=== PATIENT | female | born 2000 | race Caucasian/White ===

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

== ENCOUNTER → 2020-03-06 08:36 | Outpatient (CLI) | payer OTHER, MEDICAID, SELFPAY ==
[2018-05-18 06:55] VITALS: BMI 22.5
[2020-03-06 11:10] LABS: Glucose Challenge Gest 1H 50g 109 mg/dL (70-140); Hematocrit 33.2 % (37-47); Hemoglobin 10.6 g/dL (12.0-15.0); Mean Corp Hgb Conc 31.9 g/dL (32-36); Mean Corpuscular Hgb 30.4 pg (27.0-32.0); Mean Corpuscular Volume 95.1 fL (81-99); Mean Platelet Vol. 10.6 fl (6.2-12.0); Platelet Count 276 K/mm3 (150-450); RBC Distribution Width CV 13.5 % (11.6-14.6); RBC Distribution Width SD 46.6 fl (35.1-43.9); Red Blood Count 3.49 M/mm3 (4.2-5.4)
== END ==
PROVIDERS: PCP Family Medicine; Visit Provider Student in an Organized Health Care Education/Training Program
DX: Z34.83 Encounter for supervision of other normal pregnancy, third trimester (principal)
CPT/HCPCS: 36415; 82950; 85027

== ENCOUNTER → 2020-05-02 | Outpatient (CLI) | payer OTHER, MEDICAID, SELFPAY ==
[2018-05-18 06:55] VITALS: BMI 22.5
== END | disposition home or self-care (01) ==
LOC: LABSPEC 11:21
PROVIDERS: PCP Family Medicine; Visit Provider Student in an Organized Health Care Education/Training Program
DX: Z36.85 Encounter for antenatal screening for Streptococcus B (principal)
CPT/HCPCS: 87081

== ENCOUNTER 2020-05-19 04:20 | Inpatient (IN) | payer OTHER, MEDICAID, SELFPAY ==
[2018-05-18 06:55] VITALS: BMI 22.5
[2020-05-19] VITALS (39 sets, daily range): BP systolic 117–154; BP diastolic 57–90; PULSE 52–127; RESP 16–18; TEMP 36.6–37.4; O2SAT 81–100; BMI 30.7
[2020-05-19] MEDS: Lactated Ringers 500 ML 999 ML IV (04:40)
[2020-05-19 04:48] LABS: Absolute Lymphocyte Count 1.36 X10^3/uL (0.83-4.51); Absolute Neutrophil Count 15.7 X10^3/uL (2.0-7.7); Basophil# 0.05 X10^3/uL; Basophil% 0.3 % (0-1); Eosinophil# 0.03 X10^3/uL; Eosinophils% 0.2 % (0-5); Hematocrit 33.4 % (37-47); Lymphocyte # 1.36 X10^3/ul (4.0); Lymphocyte % 7.5 % (19-41); Mean Corp Hgb Conc 32.9 g/dL (32-36); Mean Corpuscular Hgb 30.1 pg (27.0-32.0); Mean Corpuscular Volume 91.3 fL (81-99); Mean Platelet Vol. 10.9 fl (6.2-12.0); Monocyte% 4.9 % (0-10); NRBC Flagged by Analyzer 0 % (0-5); Neutrophil # 15.72 X10^3/uL (2.7-7.7); Neutrophil % 86.1 % (47-70); Platelet Count 247 K/mm3 (150-450); RBC Distribution Width CV 14.5 % (11.6-14.6); RBC Distribution Width SD 47.8 fl (35.1-43.9); Red Blood Count 3.66 M/mm3 (4.2-5.4); White Blood Count 18.3 K/mm3 (4.4-11.0)
[2020-05-19] MEDS: Lactated Ringers 1,000 ML 200 ML IV (05:15)
--- NOTE | 2020-05-19 05:34 | HP.PCM_ITS ---
History and Physical Chief complaint: Contractions History of present illness: 20-year-old G1, P0 at 39 weeks and 1 day with KYLE: 05/26/2019 1 x 9-week ultrasou nd arrives with contractions. Denies headache, visual changes, nausea vomiting, chest pain shortness of breath, right upper quadrant pain. Obstetric history: G1: Current Past medical history: None Past surgical history: Rhinoplasty Medications: vitamin Allergies: No known drug allergies Social history: Denies smoking, alcohol use, drug use Review of systems: Besides the above pertinent positives a full review of systems was performed and found to be negative Physical exam Vital Signs Pulse BP Pulse Ox 05/19/20 05:30 100 142/68 H 05/19/20 05:26 93 154/90 H 05/19/20 05:20 61 136/71 H 05/19/20 05:16 77 148/79 H 05/19/20 05:00 127 H 81 05/19/20 04:17 52 L 134/80 H General: Normal-appearing no acute distress HEENT: Normocephalic atraumatic no cervical lymphadenopathy Cardiac/respiratory: Nonlabored breathing, no use of accessory muscles Abdomen: Soft, nontender, gravid Extremities: No peripheral edema normal peripheral pulses Psych: Normal affect normal demeanor nonpressured speech Mom's Microbiology 05/19/20 04:45 Mucosa - Nose SARS-CoV-2 Antigen (Rapid) - Final Mom's Labs & Results 05/19/20 05/19/20 04:40 04:40 WBC 18.3 H RBC 3.66 L Hgb 11.0 L Hct 33.4 L MCV 91.3 MCH 30.1 MCHC 32.9 RDW Std Deviation 47.8 H RDW Coeff of Trish 14.5 Plt Count 247 MPV 10.9 Immature Gran % (Auto) 1.000 H Neut % (Auto) 86.1 H Lymph % (Auto) 7.5 L Lamoure % (Auto) 4.9 Eos % (Auto) 0.2 Baso % (Auto) 0.3 Absolute Neuts (auto) 15.7 H Absolute Lymphs (auto) 1.36 Nucleated RBC % 0 Blood Type A POSITIVE Antibody Screen NEGATIVE Labs Blood Type: A RH: POSITIVE RPR/VDRL/Syphilis Nonreactive Rubella status Immune HbSAg Negative Date Done: 11/24/19 Chlamydia Negative Gonorrhea Negative HIV/AIDS Non-Reactive Group B Strep: Negative Assessment plan This is a 20-year-old G1, P0 at 39 weeks and 1 day in labor -[facility] -GBS negative -CEFM -Routine orders -Anesthesia to see
[2020-05-19] MEDS: fentaNYL-bupivacaine (epidural) 100 ML BAG EPIDURAL (06:11)
--- NOTE | 2020-05-19 06:19 | PN.OBGYN_ITS ---
Subjective: Patient now comfortable with epidural - Physical Exam Vitals/I&O's: Vital Signs Temp Pulse BP Pulse Ox 97.9 F 112 H 128/80 H 100 05/19/20 05:44 05/19/20 06:16 05/19/20 06:08 05/19/20 06:16 Weight: 168 lb Body Mass Index (BMI) 30.7 Intake and Output for Last 24 Hours 05/17/20 05/18/20 05/19/20 23:59 23:59 23:59 Intake Total 500 / 500 Balance 500 / 500 General: Alert, Oriented x3, Cooperative, No apparent distress HEENT: Atraumatic, PERRLA, Normocephalic Oral: Moist Mucosa Neck: Supple Extremities: No clubbing, No cyanosis, No edema Neurological: Neuro grossly intact Psych/Mental Status: Normal Affect, Appropriate, Alert and oriented to time, place, person, mood and affect Microbiology Past 72 Hours 05/19/20 04:45 Mucosa - Nose SARS-CoV-2 Antigen (Rapid) - Final Laboratory Results 05/19/20 04:40: WBC 18.3 H, RBC 3.66 L, Hgb 11.0 L, Hct 33.4 L, MCV 91.3, MCH 30.1, MCHC 32.9, RDW Std Deviation 47.8 H, RDW Coeff of Trish 14.5, Plt Count 247, MPV 10.9, Immature Gran % (Auto) 1.000 H, Neut % (Auto) 86.1 H, Lymph % (Auto) 7.5 L, Mcdowell % (Auto) 4.9, Eos % (Auto) 0.2, Baso % (Auto) 0.3, Absolute Neuts (auto) 15.7 H, Absolute Lymphs (auto) 1.36, Nucleated RBC % 0 05/19/20 04:40: Blood Type A POSITIVE, Antibody Screen NEGATIVE Current Medications Acetaminophen (Acetaminophen 500 Mg Tablet) 500 - 1,000 mg PO Q6H PRN PRN PRN Reason: Pain Score 1-3 Al Hydroxide/Mg Hydroxide (Mag Hydrox/Al Hydrox/Simeth 30 Ml Udc) 15 - 30 ml PO Q4H PRN PRN PRN Reason: INDIGESTION Citric Acid/Sodium Citrate (Sodium Citrate/Citric Acid 30 Ml Udc) 30 ml PO X1 PRN PRN Reason: Section Ephedrine Sulfate (Ephedrine Sulfate 50 Mg/Ml Ampul) 10 mg IV Q10M PRN PRN Reason: hypotension Ephedrine Sulfate (Ephedrine Sulfate 50 Mg/Ml Ampul) 10 mg IM Q30M PRN PRN Reason: hypotension Fentanyl Citrate (Fentanyl 100 Mcg/2 Ml Ampul) 25 - 50 mcg IV Q2H PRN PRN PRN Reason: Pain Score 4-10 Fentanyl/Bupivacaine/Sodium Chlor (Fentanyl-Bupivacaine (Epidural) 100 Ml Bag) 0 ml EPIDURAL UD MARY JANE; Protocol Lactated Ringer's () 500 mls @ 999 mls/hr IV .Q31M PRN PRN Reason: Epidural Last Infusion: 05/19/20 05:15 Dose: Infused Documented by: Lactated Ringer's () 500 mls @ 999 mls/hr IV .Q31M PRN PRN Reason: Corrective Measures Lactated Ringer's () 1,000 mls @ 50 mls/hr IV .Q20H MARY JANE Last Admin: 05/19/20 05:15 Dose: 200 mls/hr Documented by: Nalbuphine HCl (Nalbuphine 10 Mg/Ml Ampul) 5 mg IV Q3H PRN PRN PRN Reason: ITCHING Naloxone HCl (Naloxone 0.4 Mg/Ml Syringe) 0.02 mg IV Q1M PRN PRN Reason: RR <10 and pt unresponsive Ondansetron HCl (Ondansetron 4 Mg/2 Ml Vial) 4 mg IV Q4H PRN PRN PRN Reason: NAUSEA Prochlorperazine Edisylate (Prochlorperazine 10 Mg/2 Ml Vial) 10 mg IV Q6H PRN PRN PRN Reason: NAUSEA Sodium Chloride (0.9% Saline Lock 10 Ml Syringe) 10 - 40 ml IV X1 PRN PRN Reason: SALINE FLUSH Medical Necessity - Tobacco Use Smoking Status: Never smoker Assessment/Plan All Active Problems (Last Updated 05/18/18 @ 06:57 by Federica Vasquez) Influenza B (Acute) Patient now comfortable with epidural. AROM for clear fluid. Cervical exam /. We will continue expectant management and augment with Pitocin if needed.
[2020-05-19] MEDS: Oxytocin 30 units/NS 500 ml 30 UNITS/500 ML IV.SOLN 334 UNITS IV (10:01)
--- NOTE | 2020-05-19 10:13 | OP.PCM_ITS ---
Vaginal Delivery Maternal Presentation: Active Labor Amniotic Membrane Rupture Type: Spontaneous Amniotic Fluid Description: Lightly stained meconium Final KYLE: 05/25/20 Gestational age: 39 Weeks and 1 Days [place] doctor who attended delivery (if requested by OB): Miller Jason Date of Procedure: 05/19/20 Pre-Operative Diagnosis: IUP Post-Operative Diagnosis: IUP Surgery/ Procedure Performed: Spontaneous Vaginal Delivery Type of Anesthesia: Epidural Description of Procedure: Spontaneous vaginal delivery of a viable female infant with Apgars of 8/9 from an occiput anterior presentation with lightly stained meconium fluid and normal three-vessel placenta. No episiotomy. First-degree midline laceration repaired with 3-0 Rapide suture. Sponges okay. Delivery physician: Ronald He MD. Presentation: Vertex Placental Delivery Description: Spontaneous Placenta Disposition: [facility] Cord Vessel Description: 3 Vessels Cord Gases drawn per routine: ABG Cord Entanglement: None Estimated Blood Loss: 250 cc A gender: Female (1 minute): 8 (5 minute): 9 Episiotomy Description: None Laceration: Midline, 1st degree Medications given after delivery: IV Pitocin Complications: None
--- NOTE | 2020-05-19 10:16 | DCINST_ITS ---
Discharge Diet: No Restrictions Discharge Activity: May Shower, May Take a Tub Bath May resume sexual activity in: 4-6 weeks Additional Activity Instructions:: Nothing in the vagina for 4-6 weeks. You may return to work/school in 6 weeks. Call your doctor if you observe: Inability to urinate, Inability to have a bowel movement, Using more than one pad per hour Additional Instructions: If you experience any of the following, contact your healthcare provider. * Bleeding that soaks a pad every hour for 2 hours * Fever 100.4 or higher * Unrelieved incision or abdominal pain * Swelling, redness, discharge or bleeding from your incision or episiotomy site * Your incision begins to separate * Problems urinating (including inability to urinate or burning while urinating). * Visual changes * Severe headache * Flu-like symptoms * Pain or redness in one of both of your breasts * Pain, warmth, tenderness or swelling in your legs, especially the calf area * Frequent nausea and vomiting * Symptoms of depression or anxiety If you experience any of the following, call 911 or go to the nearest Emergency Room. * Chest pain * Problems breathing * Seizure activity * Partial or complete paralysis of a body part, slurred speech, weakness or drooping of the face, or a sudden inability to walk or hold your balance Allergies/Adverse Reactions: Allergies No Known Allergies Allergy (Verified 05/19/20 04:26) Medications to take at Discharge Vits [Prenatabs FA] 1 tab PO DAILY 05/19/20 Please Follow Up With: Ronald He MD - [phone] When: Call to make an appointment with your doctor in 6 weeks. Primary Care Physician: Gee Rose MD [Primary Care Provider] - Test Results: Test results from this visit will be discussed in further detail at your follow- up appointment, if applicable.
--- NOTE | 2020-05-19 10:16 | PCM.DCVAG ---
Discharge Diet: No Restrictions Discharge Activity: May Shower, May Take a Tub Bath May resume sexual activity in: 4-6 weeks Additional Activity Instructions:: Nothing in the vagina for 4-6 weeks. You may return to work/school in 6 weeks. Call your doctor if you observe: Inability to urinate, Inability to have a bowel movement, Using more than one pad per hour Additional Instructions: If you experience any of the following, contact your healthcare provider. Bleeding that soaks a pad every hour for 2 hours Fever 100.4 or higher Unrelieved incision or abdominal pain Swelling, redness, discharge or bleeding from your incision or episiotomy site Your incision begins to separate Problems urinating (including inability to urinate or burning while urinating). Visual changes Severe headache Flu-like symptoms Pain or redness in one of both of your breasts Pain, warmth, tenderness or swelling in your legs, especially the calf area Frequent nausea and vomiting Symptoms of depression or anxiety If you experience any of the following, call 911 or go to the nearest Emergency Room. Chest pain Problems breathing Seizure activity Partial or complete paralysis of a body part, slurred speech, weakness or drooping of the face, or a sudden inability to walk or hold your balance Allergies/Adverse Reactions: Allergies No Known Allergies Allergy (Verified 05/19/20 04:26) Medications to take at Discharge Vits [Prenatabs FA] 1 tab PO DAILY 05/19/20 Please Follow Up With: Ronald He MD - [phone] When: Call to make an appointment with your doctor in 6 weeks. Primary Care Physician: Gee Rose MD [Primary Care Provider] - Test Results: Test results from this visit will be discussed in further detail at your follow-up appointment, if applicable.
[2020-05-19] MEDS: Ibuprofen 600 MG Tablet PO (16:06)
[2020-05-20] MEDS: Ibuprofen 600 MG Tablet PO ×3 (00:06→20:33)
[2020-05-20 00:08] VITALS: BP 108/71; PULSE 104; RESP 18; TEMP 36.9
[2020-05-20 03:36] VITALS: BP 122/68; PULSE 91; RESP 18; TEMP 36.5
[2020-05-20 08:45] VITALS: BP 121/69; PULSE 75; RESP 16; TEMP 36.6; O2SAT 97
--- NOTE | 2020-05-20 10:13 | PCM.PN.OB ---
Subjective: Patient without complaints. Breast-feeding going well. Minimal vaginal bleeding reported. Is to stay until tomorrow. - Physical Exam Vitals/I&O's: Vital Signs Temp Pulse Resp BP Pulse Ox 97.8 F 75 16 121/69 H 97 05/20/20 08:45 05/20/20 08:45 05/20/20 08:45 05/20/20 08:45 05/20/20 08:45 Oxygen Delivery Method Room Air Weight: 168 lb Body Mass Index (BMI) 30.7 Intake and Output for Last 24 Hours 05/18/20 05/19/20 05/20/20 23:59 23:59 23:59 Intake Total 1909.25 / 1909.25 Output Total 650 / 650 Balance 1259.25 / 1259.25 Microbiology Past 72 Hours 05/19/20 04:45 Mucosa - Nose SARS-CoV-2 Antigen (Rapid) - Final Current Medications Acetaminophen (Acetaminophen 500 Mg Tablet) 1,000 mg PO Q8H PRN PRN PRN Reason: Pain Score 1-3 Bisacodyl (Bisacodyl 10 Mg Suppository) 10 mg RC UD PRN PRN Reason: If no BM Dibucaine (Dibucaine 30 Gm Tube) 1 applic TOPICAL TID PRN PRN; Protocol PRN Reason: Discomfort Hydrocortisone (Hydrocortisone 2.5% Crm) 1 applic TOPICAL TID PRN PRN; Protocol PRN Reason: Discomfort Ibuprofen (Ibuprofen 600 Mg Tablet) 600 mg PO Q6H PRN PRN PRN Reason: Pain Score 1-3 Last Admin: 05/20/20 08:52 Dose: 600 mg Documented by: Methylergonovine Maleate (Methylergonovine 0.2 Mg/Ml Ampul) 0.2 mg IM X1 PRN PRN Reason: Excess bleeding/uterine atony Ondansetron HCl (Ondansetron 4 Mg/2 Ml Vial) 4 mg IV Q4H PRN PRN PRN Reason: Nausea Oxycodone HCl (Oxycodone 5 Mg Tablet) 5 - 10 mg PO Q4H PRN PRN PRN Reason: Pain Score 4-10 Senna/Docusate Sodium (Senna/Docusate Sodium 1 Tablet) 1 - 2 tablet PO DAILY PRN PRN PRN Reason: Constipation Simethicone (Simethicone 80 Mg Tablet) 80 mg PO PCHS PRN PRN Reason: Indigestion/Stomach pain Sodium Chloride (0.9% Saline Lock 10 Ml Syringe) 5 - 15 ml IV UD PRN PRN Reason: SALINE FLUSH Zolpidem Tartrate (Zolpidem Tartrate 5 Mg Tablet) 5 mg PO QHS PRN PRN PRN Reason: Insomnia Medical Necessity - Tobacco Use Smoking Status: Never smoker Assessment/Plan All Active Problems (Last Updated 05/18/18 @ 06:57 by Federica Vasquez) Influenza B (Acute) Doing well day #1 status post routine spontaneous vaginal delivery. Continuing present care.
[2020-05-20 14:55] VITALS: BP 121/66; PULSE 78; RESP 16; TEMP 36.2; O2SAT 97
[2020-05-20 20:27] VITALS: BP 118/57; PULSE 84; RESP 16; TEMP 36.7
[2020-05-21 03:08] VITALS: BP 115/68; PULSE 63; RESP 16; TEMP 36.4
[2020-05-21 08:04] VITALS: BP 110/69; PULSE 94; RESP 18; TEMP 36.4; O2SAT 96
[2020-05-21] MEDS: Ibuprofen 600 MG Tablet PO (08:06)
--- NOTE | 2020-05-21 11:31 | PCM.PN.OB ---
Subjective: Patient without complaints. Breast-feeding going well. Ready to go home. - Physical Exam Vitals/I&O's: Vital Signs Temp Pulse Resp BP Pulse Ox 97.5 F L 94 18 110/69 96 05/21/20 08:04 05/21/20 08:04 05/21/20 08:04 05/21/20 08:04 05/21/20 08:04 Oxygen Delivery Method Room Air Weight: 168 lb Body Mass Index (BMI) 30.7 Intake and Output for Last 24 Hours 05/19/20 05/20/20 05/21/20 23:59 23:59 23:59 Intake Total 1909.25 / 1909.25 Output Total 650 / 650 Balance 1259.25 / 1259.25 Microbiology Past 72 Hours 05/19/20 04:45 Mucosa - Nose SARS-CoV-2 Antigen (Rapid) - Final Current Medications Acetaminophen (Acetaminophen 500 Mg Tablet) 1,000 mg PO Q8H PRN PRN PRN Reason: Pain Score 1-3 Bisacodyl (Bisacodyl 10 Mg Suppository) 10 mg RC UD PRN PRN Reason: If no BM Dibucaine (Dibucaine 30 Gm Tube) 1 applic TOPICAL TID PRN PRN; Protocol PRN Reason: Discomfort Hydrocortisone (Hydrocortisone 2.5% Crm) 1 applic TOPICAL TID PRN PRN; Protocol PRN Reason: Discomfort Ibuprofen (Ibuprofen 600 Mg Tablet) 600 mg PO Q6H PRN PRN PRN Reason: Pain Score 1-3 Last Admin: 05/21/20 08:06 Dose: 600 mg Documented by: Methylergonovine Maleate (Methylergonovine 0.2 Mg/Ml Ampul) 0.2 mg IM X1 PRN PRN Reason: Excess bleeding/uterine atony Ondansetron HCl (Ondansetron 4 Mg/2 Ml Vial) 4 mg IV Q4H PRN PRN PRN Reason: Nausea Oxycodone HCl (Oxycodone 5 Mg Tablet) 5 - 10 mg PO Q4H PRN PRN PRN Reason: Pain Score 4-10 Senna/Docusate Sodium (Senna/Docusate Sodium 1 Tablet) 1 - 2 tablet PO DAILY PRN PRN PRN Reason: Constipation Simethicone (Simethicone 80 Mg Tablet) 80 mg PO PCHS PRN PRN Reason: Indigestion/Stomach pain Sodium Chloride (0.9% Saline Lock 10 Ml Syringe) 5 - 15 ml IV UD PRN PRN Reason: SALINE FLUSH Zolpidem Tartrate (Zolpidem Tartrate 5 Mg Tablet) 5 mg PO QHS PRN PRN PRN Reason: Insomnia Medical Necessity - Tobacco Use Smoking Status: Never smoker Assessment/Plan All Active Problems (Last Updated 05/18/18 @ 06:57 by Federica Vasquez) Influenza B (Acute) Doing well day #2 status post routine spontaneous delivery. Will discharge to home with routine instructions.
[2020-05-21 12:39] VITALS: BP 114/68; PULSE 98; RESP 16; TEMP 36.1; O2SAT 96
--- NOTE | 2020-05-25 17:39 | NURSING ---
Doing well on follow up phone call, baby gaining weight and voiding and stooling and milk in. really liked mikael farris, mikael hernandez, mikael weiss and yayo
== END 2020-05-21 13:55 | disposition home or self-care (01) | DRG 807 ==
LOC: WPOUT 04:24 → WP 04:24
PROVIDERS: Obstetrics & Gynecology; Admitting Provider Obstetrics & Gynecology; PCP Family Medicine; Referring Provider Obstetrics & Gynecology; Visit Provider Obstetrics & Gynecology
DX: O77.0 Labor and delivery complicated by meconium in amniotic fluid (principal); Z37.0 Single live birth; Z3A.39 39 weeks gestation of pregnancy; O70.0 First degree perineal laceration during delivery
CPT/HCPCS: 59025; 59050; 85025; 86850; 86900; 86901; 87426; 99218; J7120; G0378

== ENCOUNTER 2021-06-27 16:15 | Outpatient (CLI) | payer OTHER, MEDICAID, SELFPAY | END 2021-06-27 23:59 | disposition home or self-care (01) | PROVIDERS: PCP Family Medicine; Visit Provider Obstetrics & Gynecology | DX: Z12.4 Encounter for screening for malignant neoplasm of cervix (principal) | CPT/HCPCS: 88175; G0145 ==

== ENCOUNTER 2021-10-16 18:08 | Outpatient (CLI) | payer OTHER, MEDICAID, SELFPAY | END 2021-10-16 23:59 | disposition home or self-care (01) | PROVIDERS: PCP Family Medicine; Visit Provider Family Medicine | DX: Z11.59 Encounter for screening for other viral diseases (principal) | CPT/HCPCS: 87635; U0003; U0005 ==

== ENCOUNTER → 2021-10-24 | Outpatient (CLI) | payer OTHER, MEDICAID, SELFPAY | END | disposition home or self-care (01) | LOC: LABSPEC 10:11 | PROVIDERS: PCP Family Medicine; Referring Provider Family Medicine; Visit Provider Family Medicine | DX: Z20.822 Contact with and (suspected) exposure to COVID-19 (principal) | CPT/HCPCS: 87635; U0003; U0005 ==

== ENCOUNTER → 2022-08-28 | Outpatient (CLI) | payer OTHER, MEDICAID, SELFPAY ==
[2022-08-28 09:36] LABS: Absolute Lymphocyte Count 1.22 X10^3/uL (0.83-4.51); Absolute Neutrophil Count 12.2 X10^3/uL (2.0-7.7); Basophil# 0.04 X10^3/uL; Basophil% 0.3 % (0-1); Eosinophil# 0.05 X10^3/uL; Eosinophils% 0.3 % (0-5); Hematocrit 34.8 % (37-47); Hemoglobin 11.9 g/dL (12.0-15.0); Lymphocyte # 1.22 X10^3/ul (0.83-4.51); Lymphocyte % 8.5 % (19-41); Mean Corp Hgb Conc 34.2 g/dL (32-36); Mean Corpuscular Hgb 30.4 pg (27.0-32.0); Mean Platelet Vol. 9.6 fl (6.2-12.0); Monocyte% 6.2 % (0-10); NRBC Flagged by Analyzer 0 % (0-5); Neutrophil # 12.17 X10^3/uL (2.7-7.7); Neutrophil % 84.4 % (47-70); Platelet Count 285 K/mm3 (150-450); RBC Distribution Width CV 13.6 % (11.6-14.6); RBC Distribution Width SD 44.5 fl (35.1-43.9); Red Blood Count 3.91 M/mm3 (4.2-5.4); White Blood Count 14.4 K/mm3 (4.4-11.0)
[2022-08-28 11:06] LABS: HIV - WCH Non-Reactive (Nonreactive); Hepatitis B Surface Antigen Non-Reactive (Nonreactive); Hepatitis C Antibody Non-Reactive (Nonreactive); Rubella IgG Reactive (Nonreactive); Syphilis Antibodies Non-reactive
[2022-08-29 05:07] LABS: V-Zoster IgG (Immunity) < 135 index (Immune >165)
== END | disposition home or self-care (01) ==
LOC: WOBLAB 09:18
PROVIDERS: PCP Family Medicine; Visit Provider Student in an Organized Health Care Education/Training Program
DX: Z34.81 Encounter for supervision of other normal pregnancy, first trimester (principal)
CPT/HCPCS: 36415; 85025; 86703; 86762; 86780; 86787; 86803; 87077; 87086; 87088; 87186; 87340

== ENCOUNTER 2023-04-08 10:55 | Inpatient (IN) | payer OTHER, MEDICAID, SELFPAY ==
[2023-04-08] VITALS (20 sets, daily range): BP systolic 114–142; BP diastolic 59–90; PULSE 75–104; RESP 16–18; TEMP 36.1–36.9; O2SAT 96–100; BMI 31.8
[2023-04-08] MEDS: Oxytocin 10 UNITS/ML Vial IM (11:15)
[2023-04-08] MEDS: Lidocaine 1% (20 ml mdv) 20 ML Vial INFILT (11:20)
--- NOTE | 2023-04-08 11:29 | PCM.HP.OB ---
HPI - General General Date of Admission: 04/08/23 HPI Narrative PASCUAL WANG, is a 23 F who presents at 39 weeks with SROM and feeling pressure to push. Maternal Data Information KYLE Calculator Estimated Delivery Date Method Current WG Current Estimate 04/15/23 [facility]w [facility]d [facility] Medical History (Updated 04/08/23 @ 11:36 by Linda Wilson CNM) Acute sinusitis, unspecified History of Nose surgery URI (upper respiratory infection) Home Medications vits,calcium no.78-iron fumarate-folic acid 29 mg-1 mg tablet 1 tab PO DAILY 05/19/20 [History Last Taken 04/08/23 09:30] ferrous sulfate 325 mg (65 mg iron) tablet (Feosol) 325 mg PO DAILY anemia 04/08/23 [History Last Taken 04/07/23 11:33 325 mg] Allergy/AdvReac Type Severity Reaction Status Date / Time No Known Allergies Allergy Verified 04/08/23 11:28 Social History Smoking Status: Never smoker History Elective abortions Hx Para 0 Spontaneous abortions Hx # Term Pregnancies Ectopic pregnancies Hx # Pregnancies Multiple births # of living children Vital Signs Vital Signs Vital Signs: 04/08/23 11:01 04/08/23 11:01 04/08/23 11:01 Temperature Temperature Source Temporal Pulse Rate 86 Blood Pressure 141/90 H BP Systolic 141 BP Diastolic 90 Pulse Ox 04/08/23 11:01 04/08/23 11:01 Temperature 97.0 F L Temperature Source Pulse Rate Blood Pressure BP Systolic BP Diastolic Pulse Ox 96 Weight Weight: 180 lb Body Mass Index (BMI) 31.8 Labs Labs Labs: Blood Type A POSITIVE Antibody Screen NEGATIVE Hct 34.8 % (37-47) L Hgb 11.9 g/dL (12.0-15.0) L Syphilis Total Ab Non-reactive VZV IgG Antibody < 135 index (Immune >165) L Rubella IgG Antibody Reactive (Nonreactive) Hep Bs Antigen Non-Reactive (Nonreactive) Hepatitis C Antibody Non-Reactive (Nonreactive) HIV 1&2 Antibody Non-Reactive (Nonreactive) Glucose 1 Hr 50 gm 109 mg/dL (70-140) Rhogam given: No Assessment & Plan (1) SROM (spontaneous rupture of membranes): (2) Active labor at term: PLAN: Plan 1) Complete dilation upon arrival with 2) NST not completed due to advanced dilation and ready for delivery 3) Routine labs ordered, awaiting H&P from care 4) Admission to L&D 5) collaborative physician and notified of patient status, plan of care, current assessment and updated.
--- NOTE | 2023-04-08 11:30 | EX.PCM.OBRPT ---
Assessment & Plan (1) Vaginal delivery: (2) First degree perineal laceration during delivery: (3) Precipitous delivery: Maternal Data Information KYLE Calculator Estimated Delivery Date Method Current WG Current Estimate 04/15/23 Manual 39w 0d Vaginal Delivery Maternal Presentation Maternal Presentation: Active Labor and Spontaneous Rupture of Membranes Operative Information Date of Procedure: 04/08/23 Pre-Operative Diagnosis: SROM, Active Labor Post-Operative Diagnosis: Precipitous vaginal delivery, first degree perineal laceration Surgery / Procedure Performed: Spontaneous Vaginal Delivery Type of Anesthesia: Local with 1% Lidocaine Estimated Blood Loss: 300ml Time of Delivery: 11:09 Findings Description of Procedure: Progressed to complete with urge to push, arrived SROM and active labor and complete dilation. Unmedicated. of viable male infant over first degree perineal laceratin. APGARS 8,9 respectively. head delivered with body immediately forthcoming. Placed on maternal abdomen, strong cry. Mouth and nares suctioned for secretions. Pitocin started for active 3rd stage management. Cord doubly clamped and cut by FOB after pulsations ceased, delayed cord clamping. Placenta delivered intact via fitzgerald, 3 vessel cord intact. Perineum inspected and revealed 1st degree perineal laceration. Repaired with 3.0 vicryl rapide and lidocaine. Fundus firm and hemostasis achieved. EBL 300ml. Mom and baby stable, planning to breastfeed. Family bonding well. notified of delivery. Presentation: Vertex and BRYCE Amniotic Membrane Rupture Type: Spontaneous Amniotic Fluid Description: Clear Placental Delivery Description: Spontaneous Placenta Disposition: [facility] Cord Vessel Description: 3 Vessels Cord Entanglement: None A Gender: Male (1 minute): 8 (5 minute): 9 Delayed Cord Clamping: Yes Post Vaginal Delivery Medications Given After Delivery: IV Pitocin and IM Pitocin Episiotomy Description: None Laceration: Vaginal Extension/lac and 1st degree Complication Complications: None
--- OUTSIDE RECORDS SUMMARY | 2023-04-08 11:42 | XMS RPT_ITS | CCD ---
Author Name Unknown Address [address] [place] [address] Organization [facility] Care Team Providers Care Museum Educator Name Role Phone Unavailable Primary Care Provider UnavailSHERYL Pacheco Attending Unavailable LUCERO CARBAJAL Attending Unavailable LEON SINGLETARY Attending Unavail able JESSICA GIBSON Attending Unavailable JAIDEN, JESSICA Attending Unavailable HAVEN BRYANT Attending Unavailable LUCERO CARBAJAL Referring Unavailable LUCERO CARBAJAL Attending Unavailable LUCERO CARBAJAL Attending Unavailable TABITHA TUTTLE Attending Unavailable Medications Completed/Discontinued Medications Medication Drug Class(es) Dates Sig (Normalized) Sig (Original) ferrous sulfate (SLOW FE) 137 mg (45 mg iron) TbER (1 source) ferrous sulfate (SLOW FE) 137 mg (45 mg iron) TbER Take by mouth. 0 Active Problems Active Problems Problem Classification Problem Date Documented Da te Episodic/Chronic Genitourinary symptoms and ill-defined conditions (3 sources) Bacteriuria; Translations: [Bacteriuria] Onset: 01-13-2023 01-13-2023 Episodic Other complications of (2 sources) Anemia in mother complicating , childbirth AND/OR puerperium; Translations: [Anemia complicating , third trimester] 02-14-2023 Chronic Other complications of (4 sources) Urinary tract infection in ; Translations: [Unspecified infection of urinary tract in , unspecified trimester] Onset: 12-04-2022 12-04-2022 Episodic Other complications of (3 sources) Varicella non-immune; Translations: [Supervision of other high risk pregnancies, unspecified trimester] Onset: 01-13-2023 01-13-2023 Episodic Other complications of (1 source) Uterine size for dates discrepancy; Translations: [Uterine size-date discrepancy, third trimester] 02-14-2023 Episodic Residual codes; unclassified (4 sources) FH: Congenital anomaly; Translations: [Family history of other congenital malformations, deformations and chromosomal abnormalities] Onset: 12-04-2022 12-04-2022 Episodic Residual codes; unclassified (1 source) Gestation period, 27 weeks; Translations: [27 weeks gestation of ] 01-17-2023 Episodic Residual codes; unclassified (1 source) Gestation period, 31 weeks; Translations: [31 weeks gestation of ] 02-14-2023 Episodic Residual codes; unclassified (1 source) Gestation period, 33 weeks; Translations: [33 weeks gestation of ] 02-28-2023 Episodic Past or Other Problems Problem Classification Problem Date Documented Da te Episodic/Chronic Other and delivery including normal (10 sources) ; Translations: [Encounter for supervision of normal , unspecified, unspecified trimester] Onset: 12-04-2022 12-20-2022 Episodic Results Test Name Value Interpretation Reference Range Facil ity Vital Signs Date Time Vital Sign Value Performing Clinician Facshyla litshania 02-28-2023 15:30-0500 Body weight 80.29 kg Leon Gresham MD Work Phone: [facility] 02-28-2023 15:30-0500 Diastolic blood pressure 62 mm[Hg] Leon Gresham MD Work Phone: [facility] 02-28-2023 15:30-0500 Systolic blood pressure 114 mm[Hg] Leon Gresham MD Work Phone: [facility] 02-14-2023 14:13-0500 Body weight 80.29 kg Jessica Gibson APRN.HATCHERY WORKER Work Phone: [facility] 02-14-2023 14:13-0500 Diastolic blood pressure 72 mm[Hg] Jessica Gibson APRN.HATCHERY WORKER Work Phone: [facility] 02-14-2023 14:13-0500 Systolic blood pressure 126 mm[Hg] Jessica Gibson APRN.HATCHERY WORKER Work Phone: [facility] 01-17-2023 13:50-0400 Body weight 80.29 kg Jessica Potterheron TOUR ACTOR.HATCHERY WORKER Work Phone: [facility] 01-17-2023 13:50-0400 Diastolic blood pressure 60 mm[Hg] Jessica Gibson TOUR ACTOR.HATCHERY WORKER Work Phone: [facility] 01-17-2023 13:50-0400 Systolic blood pressure 118 mm[Hg] Jessica Potterheron TOUR ACTOR.HATCHERY WORKER Work Phone: [facility] 12-20-2022 11:26-0400 Body height 157.5 cm Lucero Carbajal MD Work Phone: [facility] 12-20-2022 11:26-040 Body weight 77.56 kg Lucero Carbajal MD Work Phone: [facility] 12-20-2022 11:26-0400 Diastolic blood pressure 76 mm[Hg] Lucero Carbajal MD Work Phone: [facility] 12-20-2022 11:26-0400 Systolic blood pressure 110 mm[Hg] Lucero Carbajal MD Work Phone: [facility] Encounters Encounter Date Encounter Type Care Provider Facility Start: 04-04-2023 End: 04-04-2023 ambulatory LUCERO CARBAJAL Facility:[facility] Start: 03-28-2023 End: 03-28-2023 ambulatory TABITHA TUTTLE Facility:[facility] Start: 03-21-2023 End: 03-21-2023 ambulatory SHERYL SWAIN Facility:[facility] Start: 03-14-2023 End: 03-14-2023 ambulatory LUCERO CARBAJAL Facility:[facility] Start: 02-28-2023 End: 02-28-2023 ambulatory LEON GRESHAM Facility:[facility] Start: 02-28-2023 End: 02-28-2023 Patient encounter procedure Leon Gresham MD Work Phone: OB/Gynecology Procedures Date Procedure Procedure Detail Performing Clinician Start: 02-28-2023 URINE OB DIP B/O Leon Gresham MD Work Phone: Start: 02-14-2023 URINE OB DIP B/O Jessica Gibson APRN.CNP Work Phone: Start: 01-17-2023 URINE OB DIP B/O Haven Bryant MD Work Phone: Start: 12-20-2022 URINE OB DIP B/O Lucero arias MD Work Phone: Plan of Treatment Date Care Activity Detail Author Start: 06-27-2024 Pap Testing Pap Testing [facility] Start: 08-29-2023 Chlamydia Screening (18-24) Chlamydia Screening (18-24) [facility] Start: 08-29-2023 GC (Gonorrhea) Screening (18-24) GC (Gonorrhea) Screening (18-24) [facility] Start: 02-14-2023 End: 05-16-2023 CBC panel - Blood by Automated count CBC Lab Routine Anemia complicating , third trimester Expected: 02/14/2023, Expires: 05/16/2023 [facility] Work Phone: Payers Date Payer Category Payer Unknown [id number] 2022 Unknown [id number] 2022 Medicaid [facility] MEDICAID [place] [employer] [place] [id number] 2022-Present [phone] [address] [place] [address] Medicaid [id number] 2022 Medicaid [id number] Social History Date Type Detail Facility [facility] smoking consumption unknown [facility] Start: 2000 Sex Assigned At Not on file [facility] Start: 12-20-2022 End: 02-28-2023 Gender identity Not on file [facility] Start: 12-04-2022 [facility] Never smoked tobacco [facility] Work Phone: Start: 12-04-2022 Tobacco use and exposure Smokeless tobacco non-user [facility] Work Phone: Start: 12-20-2022 End: 02-14-2023 Alcohol intake Lifetime non-drinker (finding) [facility] Start: 12-20-2022 End: 02-28-2023 History of Social function [facility] National Score (1-100), lower number is lower risk 64 [facility] Start: 12-04-2022 Education 13 [facility] Start: 07-23-2022 [facility] Goals Date Patient Goal Desired Activity /State Personal health goal Clinical Notes 11-28-2022 to 02-28-2023 Quick Notes - Leon Singletary MD - 02/28/2023 3:40 PM ESTPatient InstructionsPrenatal Quick Notes - Jessica Gibson APRN.CNP - 02/14/2023 2:31 PM ESTPatient Instructions Note Date & Type Note Facility 02-28-2023 Miscellaneous Notes Formattin g of this note might be different from the original. DM- Pt doing well today. Denies Vaginal Bleeding, Leaking fluid, or contractions. Pt reports good movement. Considering RSV at next visit. Kick counts reviewed. Continue PO iron. Leon Ellsworth MD documented in this encounter [facility] 02-28-2023 Instructions Jodie Rojas Ma - 02/28/2023 3:16 PM EST SEQUENTIAL SCREENINGS The [facility] offers sequential screenings for women who are interested in screenings for chromosomal abnormalities and certain defects during a . The sequential screen combines ultrasound and blood tests to determine the risk of chromosomal abnormalities, including Down's Syndrome (Trisomy 21) and Trisomy 18, as well as open neural tube defects including spina bifida. Ultrasound examination is performed between 11 weeks and 13 weeks gestational age. Blood tests are drawn after the ultrasound and again later in the between 15 and 21 weeks gestational age. Please let your physician know if you are interested in this testing. It will require an appointment with our fire alarm technician. This is not an ultrasound performed by a physician in our office during a routine visit. SIGNS AND SYMPTOMS OF LABOR 1. Contractions every 10 minutes or more often 2. Clear, pink, or brownish fluid (water) leaking from vagina 3. Feeling that baby is pushing down, pressure 4. Low, dull backache 5. Cramps that feel like a period 6. Cramps with or without diarrhea If you notice any of the above symptoms, contact our office at [phone] and ask to speak with a nurse. After hours, you can call doctors registry at [phone] OR call [facility] at [phone] and ask to have the doctor demand generation manager paged. If you consider this an emergency, dial 91-7 or go to your nearest emergency department. NEED HELP? Are you dealing with a violent or abusive relationship? Are you a victim of rape or sexual assult? Call [facility] ([place]) 24 hour Crisis Hotline: 244.657.4705 or 963-930-6491. MANUAL Your Guide to a Healthy manual is now on-line. Visit [email or web address] [email or web address] to download your free copy documented in this encounter [facility] 02-14-2023 Miscellaneous Notes Formattin g of this note might be different from the original. S: Kailyn is a 22 year old female who presents at 31w3d for a routine visit. Feeling movement. Denies headache, visual changes, chest pain, shortness of breath, vaginal bleeding, leakage of fluid, or dysuria. Feeling well, no complaints. O: See flow sheet Gen: No apparent distress Abd: Gravid, nontender, S<D ASSESSMENT/PLAN: 1. Encounter for supervision of other normal in third trimester - ICD9: V22.1, ICD10: Z34.83 (primary diagnosis) - Reviewed PTL precautions - Reviewed kick counts 31 weeks gestation of - ICD9: V22.2, ICD10: Z3A.31 - RTO in 2 weeks or sooner PRN Anemia complicating , third trimester - ICD9: 648.23, 285.9, ICD10: O99.013 - Was recommended to start treatment - Patient started iron supplement - Reviewed hemoglobin is >10.5, WNL for 28 weeks in , but will recheck next visit Uterine size-date discrepancy, third trimester - ICD9: 649.63, ICD10: O26.843 - 1 cm difference - Continue to monitor - Consider growth if discrepancy increasing Jessica Gibson APRN.CNP Medical Decision Making: Problems: Low: Stable chronic illness Data: Unique test(s) ordered: 1 Risk: Minimal: Minimal risk from testing/treatment Moderate: Drug management Medical Decision Making Level: 3 - Low documented in this encounter [facility] 02-14-2023 Instructions Jennifer Garcia Ma - 02/14/2023 2:09 PM EST SEQUENTIAL SCREENINGS The [facility] offers sequential screenings for women who are interested in screenings for chromosomal abnormalities and certain defects during a . The sequential screen combines ultrasound and blood tests to determine the risk of chromosomal abnormalities, including Down's Syndrome (Trisomy 21) and Trisomy 18, as well as open neural tube defects including spina bifida. Ultrasound examination is performed between 11 weeks and 13 weeks gestational age. Blood tests are drawn after the ultrasound and again later in the between 15 and 21 weeks gestational age. Please let your physician know if you are interested in this testing. It will require an appointment with our fire alarm technician. This is not an ultrasound performed by a physician in our office during a routine visit. SIGNS AND SYMPTOMS OF LABOR 1. Contractions every 10 minutes or more often 2. Clear, pink, or brownish fluid (water) leaking from vagina 3. Feeling that baby is pushing down, pressure 4. Low, dull backache 5. Cramps that feel like a period 6. Cramps with or without diarrhea If you notice any of the above symptoms, contact our office at [phone] and ask to speak with a nurse. After hours, you can call doctors registry at [phone] OR call [facility] at [phone] and ask to have the doctor demand generation manager paged. If you consider this an emergency, dial [phone]- or go to your nearest emergency department. NEED HELP? Are you dealing with a violent or abusive relationship? Are you a victim of rape or sexual assult? Call [facility] ([place]) 24 hour Crisis Hotline: 948.731.2050 or 266-254-6705. MANUAL Your Guide to a Healthy manual is now on-line. Visit [email or web address] uide to download your free copy documented in this encounter [facility] 01-17-2023 Miscellaneous Notes Formattin g of this note might be different from the original. S: Kailyn Wang is a 22 year old female who presents at 27w3d for a routine visit. Feeling movement. Denies headache, visual changes, chest pain, shortness of breath, vaginal bleeding, leakage of fluid, or dysuria. Feeling well, no complaints. O: See flow sheet Gen: No apparent distress Abd: Gravid, nontender, S=D ASSESSMENT/PLAN: 1. Encounter for supervision of other normal in second trimester - ICD9: V22.1, ICD10: Z34.82 (primary diagnosis) - URINE OB DIP B/O 2. 27 weeks gestation of - ICD9: V22.2, ICD10: Z3A.27 - Kick counts and PTL precautions reviewed - RPR, CBC, and GTT today - Denies depression symptoms - Declines LARC - Declines TDAP - RTO in 2 weeks or sooner as needed Jessica Gibson APRN.KIMBERLEE [place] APRN.HATCHERY WORKER documented in this encounter [facility] 01-17-2023 Instructions Stephanie Brothers Ma - 01/17/2023 1:44 PM EDT SEQUENTIAL SCREENINGS The [facility] offers sequential screenings for women who are interested in screenings for chromosomal abnormalities and certain defects during a . The sequential screen combines ultrasound and blood tests to determine the risk of chromosomal abnormalities, including Down's Syndrome (Trisomy 21) and Trisomy 18, as well as open neural tube defects including spina bifida. Ultrasound examination is performed between 11 weeks and 13 weeks gestational age. Blood tests are drawn after the ultrasound and again later in the between 15 and 21 weeks gestational age. Please let your physician know if you are interested in this testing. It will require an appointment with our fire alarm technician. This is not an ultrasound performed by a physician in our office during a routine visit. SIGNS AND SYMPTOMS OF LABOR 1. Contractions every 10 minutes or more often 2. Clear, pink, or brownish fluid (water) leaking from vagina 3. Feeling that baby is pushing down, pressure 4. Low, dull backache 5. Cramps that feel like a period 6. Cramps with or without diarrhea If you notice any of the above symptoms, contact our office at [phone] and ask to speak with a nurse. After hours, you can call [employer] registry at [phone] OR call [facility] at [phone] and ask to have the doctor demand generation manager paged. If you consider this an emergency, dial 91-2 or go to your nearest emergency department. NEED HELP? Are you dealing with a violent or abusive relationship? Are you a victim of rape or sexual assult? Call [facility] ([place]) 24 hour Crisis Hotline: 227.111.6648 or 629-599-4617. MANUAL Your Guide to a Healthy manual is now on-line. Visit [email or web address] [email or web address] to download your free copy documented in this encounter [facility] documented as of this encounter (statuses as of 01/17/2023) [facility]10-23-2023 History of Past illness Narrative* Problem Noted Date Diagnosed Date Resolved Date Rubella non-immune status, antepartum 01/13/2023 01/13/2023 documented as of this encounter (statuses as of 02/14/2023) [facility]10-23-2023 History of Past illness Narrative* Problem Noted Date Diagnosed Date Resolved Date Rubella non-immune status, antepartum 01/13/2023 01/13/2023 documented as of this encounter (statuses as of 03/01/2023) [facility]09-29-2023 NoteHNO ID: [id number] Author: Lucero Carbajal MD Service: ? Author Type: Physician Type: Progress Notes Filed: 12/20/2022 1:29 PM Note Text: INITIAL OB ASSESSMENT OB Provider: Ann Edwards RN HPI: Kailyn is a 22 year old White here to establish Obstetrical Care. Patient's last menstrual period was 06/28/2022 (exact date). from OB Dating Form. Cycles regular was unplanned but accepted Complaints: None OB History T1 L1 SAB0 IAB0 Ectopic0 Multiple0 Live Births1 Previous history: Prior : never History of 4th degree laceration: No History of shoulder dystocia: No History of Hypertensive disorders including pre-eclampsia, chronic hypertension or gestational hypertension: No History of gestational diabetes: No Patient's Risk Screening for delivery: Have you had a prior llanos between 20w and 36w6d?: No MEDICAL/PSYCHOSOCIAL HISTORY: History of hemorrhage or bleeding concerns: No Thyroid Disease: No History of chronic hypertension: No History of pre-existing diabetes: No No results found for: ABORHD No weight on file for this encounter. History of abnormal pap: No Prior treatment for cervical dysplasia: none. History of STDs: None Tobacco use: No Caffeine use: Yes, 1 cup of coffee a day Drug use: No Alcohol use: No Multivitamin with Folic acid: Yes Mormonism or heritage: No Would refuse blood transfusion if medically necessary: No Are you currently employed? Yes, Occupation: self employed coach tour driver Do you have any history of depression, anxiety, PTSD, eating disorders or other mood problems: No Do you have any safety concerns or history of traumatic events that you would like to discuss with your provider: No SDOH Screening: How often does this describe you? I don't have enough money to pay my bills: Never Within the past 12 months, have you worried that your food would run out before you had money to buy more: Never In the past 12 months, has lack of reliable transportation kept you from going to medical appointments or work, or from keeping things needed for daily living: Never In the past 12 months, have you had any concerns about having a place to live, or about the condition or quality of your housing: Never Are there any cultural or spiritual needs we should be aware of: No Depression/Anxiety Screening: denies symptoms of depression. OB Depression and Anxiety Screening- This Encounter (since 12/03/2022) Over the past 2 weeks have you felt down, depressed, or hopeless? Negative Over the past two weeks, have you felt little interest or pleasure in doing things?? Negative Feeling nervous, anxious or on edge 0-Not at all Not being able to stop or control worrying 0-Not al all Anxiety Pre-Screening Total (If >/= 3 additional questions will be reviewed) 0 Genetic Screening: Partner present: Yes Patient verbalized knowledge of partner family health history: Yes Do you or your partner have any personal or family history of defects not previously discussed: No Do you have history of a complicated by anomaly, genetic condition, or demise: No ACOG Recommended Screening Screening for early gestational diabetes testing: Criteria for early testing requires elevated BMI plus one other risk factor: No weight on file for this encounter. (risk factor if > than 25 or 23 in Americans)-starting weigh 155lb Additional risk factors: None She does not meet ACOG criteria for early gestational DM screening. Screening for low dose aspirin use for the prevention of pre-eclampsia: Low dose aspirin should be considered if the patient has one high or two moderate risk factors: High risk factors: None Moderate risk ractors: None She does not meet criteria for low dose ASA Marital Status: Partner: Name: Shaina Wang Age: 23 Occupation: sales/ [employer] Gender: Male History of STDs: None PAST MEDICAL HISTORY History reviewed. No pertinent past medical history. PAST SURGICAL HISTORY PAST SURGICAL HISTORY Procedure Laterality Date SEPTOPLASTY 2017 CURRENT MEDICATIONS Current Outpatient Medications Medication Sig Dispense Refill vitamins no.2 ( VITAMIN NO.2 ORAL) No current facility-administered medications for this visit. Allergies As of Date: 12/04/2022 (No Known Allergies) Fully Assessed 12/04/2022 Does patient have penicillin allergy: No No past medical history on file. PAST SURGICAL HISTORY Procedure Laterality Date SEPTOPLASTY 2017 Current Outpatient Medications Medication Sig Dispense Refill vitamins no.2 ( VITAMIN NO.2 ORAL) No current facility-administered medications for this visit. Allergies As of Date: 12/20/2022 (No Known Allergies) Fully Assessed 12/04/2022 Does patient have penicillin allergy: No REVIEW OF SYSTEMS: GE (more content not included)...[facility]09-29-2023 Miscellaneous Notes* Quick Notes - Lucero Carbajal MD - 12/20/2022 1:24 PM EDT EMRE- RUTHIE today. [facility] History of Present illness Narrative* Lucero Carbajal MD - 12/20/2022 11:24 AM EDT INITIAL OB ASSESSMENT OB Provider: Ann Edwards RN HPI: Kailyn is a 22 year old White here to establish Obstetrical Care. Patient's last menstrualperiod was 06/28/2022 (exact date). from OB Dating Form. Cycles regular was unplanned but accepted Complaints: None OB History T1 L1 SAB0 IAB0 Ectopic0 Multiple0 Live Births1 Previous history: Prior : never History of 4th degree laceration: No History of shoulder dystocia: No History of Hypertensive disorders including pre-eclampsia, chronic hypertension or gestational hypertension: No History of gestational diabetes: No Patient's Risk Screening for delivery: Have you had a prior llanos between 20w and 36w6d?: No MEDICAL/PSYCHOSOCIAL HISTORY: History of hemorrhage or bleeding concerns: No Thyroid Disease: No History of chronic hypertension: No History of pre-existing diabetes: No No results found for: ABORHD No weight on file for this encounter. History of abnormal pap: No Prior treatment for cervical dysplasia: none. History of STDs: None Tobacco use: No Caffeine use: Yes, 1 cup of coffee a day Drug use: No Alcohol use: No Multivitamin with Folic acid: Yes Mormonism or heritage: No Would refuse blood transfusion if medically necessary: No Are you currently employed? Yes, Occupation: self employed coach tour driver Do you have any history of depression, anxiety, PTSD, eating disorders or other mood problems: No Do you have any safety concerns or history of traumatic events that you would like to discuss with your provider: No SDOH Screening: How often does this describe you? I don't have enough money to pay my bills: Never Within the past 12 months, have you worried that your food would run out before you had money to buy more: Never In the past 12 months, has lack of reliable transportation kept you from going to medical appointments or work, or from keeping things needed for daily living: Never In the past 12 months, have you had any concerns about having a place to live, or about the condition or quality of your housing: Never Are there any cultural or spiritual needs we should be aware of: No Depression/Anxiety Screening: denies symptoms of depression. OB Depression and Anxiety Screening- This Encounter (since 12/03/2022) Over the past 2 weeks have you felt down, depressed, or hopeless? Negative Over the past two weeks, have you felt little interest or pleasure in doing things? Negative Feeling nervous, anxious or on edge 0-Not at all Not being able to stop or control worrying 0-Not al all Anxiety Pre-Screening Total (If >/= 3 additional questions will be reviewed) 0 Genetic Screening: Partner present: Yes Patient verbalized knowledge of partner family health history: Yes Do you or your partner have any personal or family history of defects not previously discussed: No Do you have history of a complicated by anomaly, genetic condition, or demise: No ACOG Recommended Screening Screening for early gestational diabetes testing: Criteria for early testing requires elevated BMI plus one other risk factor: No weight on file for this encounter. (risk factor if > than 25 or 23 in Americans)-starting weigh 155lb Additional risk factors: None She does not meet ACOG criteria for early gestational DM screening. Screening for low dose aspirin use for the prevention of pre-eclampsia: Low dose aspirin should be considered if the patient has one high or two moderate risk factors: High risk factors: None Moderate risk ractors: None She does not meet criteria for low dose ASA Marital Status: Partner: Name: hSaina Wang Age: 23 Occupation: sales/ [employer] Gender: Male History of STDs: None PAST MEDICAL HISTORY History reviewed. No pertinent past medical history. PAST SURGICAL HISTORY PAST SURGICAL HISTORY Procedure Laterality Date SEPTOPLASTY 2017 CURRENT MEDICATIONS Current Outpatient Medications Medication Sig Dispense Refill vitamins no.2 ( VITAMIN NO.2 ORAL) No current facility-administered medications for this visit. Allergies As of Date: 12/04/2022 (No Known Allergies) Fully Assessed 12/04/2022 Does patient have penicillin allergy: No No past medical history on file. PAST SURGICAL HISTORY Procedure Laterality Date SEPTOPLASTY 2017 Current Outpatient Medications Medication Sig Dispense Refill vitamins no.2 ( VITAMIN NO.2 ORAL) No current facility-administered medications for this visit. Allergies As of Date: 12/20/2022 (No Known Allergies) Fully Assessed 12/04/2022 Does patient have penicillin allergy: No REVIEW OF SYSTEMS: GENERAL: Negative for: Fever or Chills HEENT: Negative for: Headache, Impaired Vision, Ringing in Ears, Nosebleeds NECK: Negative for: Swelling, Pain, Stiffness RESPIRATORY: Negative for: Cough, Shortness of breath, Wheezing GASTROINTESTINAL: Negative for: Heartburn, Constipation, Diarrhea, Blood in stool, Vomiting MUSCULOSKELETAL: Negative for: Muscle or joint pain, stiffness, Joint swelling NEUROLOGIC/PSYCHIATRIC: Negative for: Weakness, Paralysis, Numbness, Tingling, Tremor, Anxiety, Depression, Memory loss SKIN: Negative for: Rash, Itching GENITOURINARY: Negative for: vaginal itching, vaginal discharge, hematuria or dysuria PHYSICAL EXAM: LMP 06/28/2022 GENERAL: pleasant in no apparent distress DERMATOLOGY: Normal, without lesions, non-icteric, and non-hirsute NECK: full range of motion CHEST: Normal inspiratory effort ABDOMEN: soft, non-tender, and no masses NEURO: exam grossly non-focal +FHT on doppler OB Risk Screening: Completed, no positive findings documented. ASSESSMENT: 22 year old at 23w3d wks gestational age PLAN: 1) Patient oriented to practice. Discussed nutrition, folic acid supplementation, dietary guidelines, exercise, smoking, alcohol, caffeine, and drug use. Discussed gestational weight gain guidelines. Discussed how to access Your guide to a health and the Duty Engineer. See problem list. Transfer of care. Follow up in 4 weeks or sooner prn. Lucero Carbajal DO [facility] Instructions* Patient Instructions* Maria Eugenia Bingham MA - 12/20/2022 11:24 AM EDT Please select the following link to access the [facility] Your Guide to a Healthy . [email or web address] documented in this encounter[facility]23 NoteHNO ID: [id number] Author: Ann Edwards RN Service: ? Author Type: ? Type: Progress Notes Filed: 12/04/2022 11:19 AM Note Text: INITIAL OB ASSESSMENT OB Provider: Ann Edwards RN HPI: Kailyn is a 22 year old White here to establish Obstetrical Care. Patient's last menstrual period was 06/28/2022 (exact date). from OB Dating Form. Cycles regular was unplanned but accepted Complaints: None OB History T1 L1 SAB0 IAB0 Ectopic0 Multiple0 Live Births1 Previous history: Prior : never History of 4th degree laceration: No History of shoulder dystocia: No History of Hypertensive disorders including pre-eclampsia, chronic hypertension or gestational hypertension: No History of gestational diabetes: No Patient's Risk Screening for delivery: Have you had a prior llanos between 20w and 36w6d?: No MEDICAL/PSYCHOSOCIAL HISTORY: History of hemorrhage or bleeding concerns: No Thyroid Disease: No History of chronic hypertension: No History of pre-existing diabetes: No No results found for: ABORHD No weight on file for this encounter. History of abnormal pap: No Prior treatment for cervical dysplasia: none. History of STDs: None Tobacco use: No Caffeine use: Yes, 1 cup of coffee a day Drug use: No Alcohol use: No Multivitamin with Folic acid: Yes Mormonism or heritage: No Would refuse blood transfusion if medically necessary: No Are you currently employed? Yes, Occupation: self employed coach tour driver Do you have any history of depression, anxiety, PTSD, eating disorders or other mood problems: No Do you have any safety concerns or history of traumatic events that you would like to discuss with your provider: No SDOH Screening: How often does this describe you? I don't have enough money to pay my bills: Never Within the past 12 months, have you worried that your food would run out before you had money to buy more: Never In the past 12 months, has lack of reliable transportation kept you from going to medical appointments or work, or from keeping things needed for daily living: Never In the past 12 months, have you had any concerns about having a place to live, or about the condition or quality of your housing: Never Are there any cultural or spiritual needs we should be aware of: No Depression/Anxiety Screening: denies symptoms of depression. OB Depression and Anxiety Screening- This Encounter (since 12/03/2022) Over the past 2 weeks have you felt down, depressed, or hopeless? Negative Over the past two weeks, have you felt little interest or pleasure in doing things?? Negative Feeling nervous, anxious or on edge 0-Not at all Not being able to stop or control worrying 0-Not al all Anxiety Pre-Screening Total (If >/= 3 additional questions will be reviewed) 0 Genetic Screening: Partner present: Yes Patient verbalized knowledge of partner family health history: Yes Do you or your partner have any personal or family history of defects not previously discussed: No Do you have history of a complicated by anomaly, genetic condition, or demise: No ACOG Recommended Screening Screening for early gestational diabetes testing: Criteria for early testing requires elevated BMI plus one other risk factor: No weight on file for this encounter. (risk factor if > than 25 or 23 in Americans)-starting weigh 155lb Additional risk factors: None She does not meet ACOG criteria for early gestational DM screening. Screening for low dose aspirin use for the prevention of pre-eclampsia: Low dose aspirin should be considered if the patient has one high or two moderate risk factors: High risk factors: None Moderate risk ractors: None She does not meet criteria for low dose ASA Marital Status: Partner: Name: Shaina Wang Age: 23 Occupation: sales/ [employer] Gender: Male History of STDs: None History reviewed. No pertinent past medical history. PAST SURGICAL HISTORY Procedure Laterality Date SEPTOPLASTY 2016 Current Outpatient Medications Medication Sig Dispense Refill vitamins no.2 ( VITAMIN NO.2 ORAL) No current facility-administered medications for this visit. Allergies As of Date: 12/04/2022 (No Known Allergies) Fully Assessed 12/04/2022 Does patient have penicillin allergy: [facility]09-07-2023 Miscellaneous Notes* Telephone Encounter - Sola Cordero RN - 11/28/2022 4:36 PM EDT Received records from [place]. To [facility] box for 12/04 visit and sent for scanning. Patient is [id number] today and was scheduled for NOB with . Rescheduled to PNOB and NOB with SW. Sola Cordero RN [facility] Diagnosis with care elsewhere, antepartum- Primary Encounter for supervision of other normal in second trimester documented in this encounter [facility]* Diagnosis Encounter for supervision of other normal in second trimester- Primary 27 weeks gestation of state, incidental documented in this encounter [facility] note* Diagnosis Encounter for supervision of other normal in third trimester- Primary Anemia complicating , third trimester with care elsewhere, antepartum 31 weeks gestation of state, incidental Uterine size-date discrepancy, third trimester documented in this encounter [facility]* Diagnosis Anemia complicating , third trimester- Primary 33 weeks gestation of state, incidental documented in this encounter [facility] Health Concerns Problem Noted Date Diagnosed Date [facility] - [facility] 12/20/2022 Education - [place] 12/20/2022 Problem Noted Date Diagnosed Date [facility] - [facility] 12/20/2022 Education - [place] 12/20/2022 Problem Noted Date Diagnosed Date [facility] - [facility] 12/20/2022 Education - [place] 12/20/2022 Summary Purpose Family History No Family History Records Found Advance Directives No Advanced Directives Records Found Additional Source Comments Source Comments (unrecognize d section and content) In the event this informatio n is protected by the Federal Confidentiality of Alcohol and Drug Abuse Patient Records regulations: The Federal rules restrict any use of the information to criminally investigate or prosecute any alcohol or drug abuse patient.[facility] the event this information is protected by the Federal Confidentiality of Alcohol and Drug Abuse Patient Records regulations: The Federal rules restrict any use of the information to criminally investigate or prosecute any alcohol or drug abuse patient.[facility] the event this information is protected by the Federal Confidentiality of Alcohol and Drug Abuse Patient Records regulations: The Federal rules restrict any use of the information to criminally investigate or prosecute any alcohol or drug abuse patient.[facility] the event this information is protected by the Federal Confidentiality of Alcohol and Drug Abuse Patient Records regulations: The Federal rules restrict any use of the information to criminally investigate or prosecute any alcohol or drug abuse patient.[facility] the event this information is protected by the Federal Confidentiality of Alcohol and Drug Abuse Patient Records regulations: The Federal rules restrict any use of the information to criminally investigate or prosecute any alcohol or drug abuse patient.[facility] Reason for Visit (unrecogniz ed section and content) Reason Onset Date Comments Care 01/17/2023 Reason Onset Date Comments Care 02/14/2023 Reason Onset Date Comments Care 02/28/2023 INFORMATION SOURCE (unrecogn ized section and content) FOR RECORDS PERTAINING TO PATIENTS WHO ARE OR HAVE BEEN ENROLLED IN A CHEMICAL DEPENDENCY/SUBSTANCEABUSE PROGRAM, SOME INFORMATION MAY BE OMITTED. This clinical summary was aggregated from multiple sources. Caution should be exercised in using it in the provision of clinical care. This summary normalizes information from multiple sources, and as a consequence, information in this document may materially change the coding, format and clinical context of patient data. In addition, data may be omitted in some cases. CLINICAL DECISIONS SHOULD BE BASED ON THE PRIMARY CLINICAL RECORDS. [employer] [facility]. provides no warranty or guarantee of the accuracy or completeness of information in this document.
[2023-04-08] MEDS: Ibuprofen 600 MG Tablet PO ×2 (12:30→23:51)
[2023-04-08 13:14] LABS: Absolute Lymphocyte Count 1.08 X10^3/uL (0.83-4.51); Absolute Neutrophil Count 21.5 X10^3/uL (2.0-7.7); Basophil# 0.13 X10^3/uL; Basophil% 0.6 % (0-1); Hematocrit 40.5 % (37-47); Hemoglobin 13.1 g/dL (12.0-15.0); Lymphocyte # 1.08 X10^3/ul (0.83-4.51); Lymphocyte % 4.6 % (19-41); Mean Corp Hgb Conc 32.3 g/dL (32-36); Mean Corpuscular Hgb 30.2 pg (27.0-32.0); Mean Corpuscular Volume 93.3 fL (81-99); Mean Platelet Vol. 10.2 fl (6.2-12.0); Monocyte# 0.75 X10^3/uL; Monocyte% 3.2 % (0-10); NRBC Flagged by Analyzer 0 % (0-5); Neutrophil % 90.9 % (47-70); POSITIVE DIFFERENTIAL YES; Platelet Count 261 K/mm3 (150-450); RBC Distribution Width CV 14.2 % (11.6-14.6); RBC Distribution Width SD 48.5 fl (35.1-43.9); Red Blood Count 4.34 M/mm3 (4.2-5.4); White Blood Count 23.6 K/mm3 (4.4-11.0)
[2023-04-08 13:15] LABS: Differential Indicated SCAN CRITERIA MET
[2023-04-08 13:46] LABS: Differential Comment SCANNED
[2023-04-08 13:50] LABS: Syphilis Antibodies Non-reactive
[2023-04-08] MEDS: Senna/Docusate Sodium 1 Tablet PO (14:55)
[2023-04-08] MEDS: Acetaminophen 500 MG Tablet 1000 MG PO (21:04)
[2023-04-09 03:39] VITALS: BP 110/54; PULSE 81; RESP 18
[2023-04-09 06:21] LABS: Absolute Lymphocyte Count 2.26 X10^3/uL (0.83-4.51); Basophil# 0.04 X10^3/uL; Basophil% 0.3 % (0-1); Eosinophil# 0.05 X10^3/uL; Eosinophils% 0.3 % (0-5); Hematocrit 37.1 % (37-47); Hemoglobin 12.4 g/dL (12.0-15.0); Lymphocyte # 2.26 X10^3/ul (0.83-4.51); Lymphocyte % 14.7 % (19-41); Mean Corp Hgb Conc 33.4 g/dL (32-36); Mean Corpuscular Volume 92.8 fL (81-99); Mean Platelet Vol. 9.8 fl (6.2-12.0); Monocyte# 0.98 X10^3/uL; Monocyte% 6.4 % (0-10); NRBC Flagged by Analyzer 0 % (0-5); Neutrophil # 11.96 X10^3/uL (2.7-7.7); Neutrophil % 77.8 % (47-70); Platelet Count 212 K/mm3 (150-450); RBC Distribution Width CV 14.3 % (11.6-14.6); RBC Distribution Width SD 48.5 fl (35.1-43.9); White Blood Count 15.4 K/mm3 (4.4-11.0)
[2023-04-09 08:00] VITALS: BP 109/77; PULSE 77; RESP 16; TEMP 36.3
[2023-04-09] MEDS: Senna/Docusate Sodium 1 Tablet PO (08:27)
[2023-04-09] MEDS: Ibuprofen 600 MG Tablet PO ×2 (08:27→14:38)
--- NOTE | 2023-04-09 08:29 | PN_ITS ---
Subjective Subjective patient seen at bedside, doing well. Patient reports good pain control. lochia mild. Objective Data Objective Data Vital Signs: Vital Signs Temp Pulse Resp BP Pulse Ox O2 Del Method 98.4 F 81 18 110/54 L 99 Room Air 04/08/23 16:00 04/09/23 03:39 04/09/23 03:39 04/09/23 03:39 04/08/23 13:22 04/09/23 03:39 Oxygen Delivery Method Room Air Weight: 81.647 kg Body Mass Index (BMI) 31.8 Intake & Output: Intake and Output for Last 24 Hours 04/07/23 04/08/23 04/09/23 23:59 23:59 23:59 Output Total 1000 / 1000 Balance -1000 / -1000 Lab / Micro Data 04/09/23 06:10 Labs: Laboratory Results - last 24 hr 04/08/23 12:40: WBC 23.6 H, RBC 4.34, Hgb 13.1, Hct 40.5, MCV 93.3, MCH 30.2, MCHC 32.3, RDW Std Deviation 48.5 H, RDW Coeff of Trish 14.2, Plt Count 261, MPV 10.2, Immature Gran % (Auto) 0.700, Neut % (Auto) 90.9 H, Lymph % (Auto) 4.6 L, [place] % (Auto) 3.2, Eos % (Auto) 0.0, Baso % (Auto) 0.6, Absolute Neuts (auto) 21.5 H, Absolute Lymphs (auto) 1.08, Nucleated RBC % 0, Differential Comment SCANNED, Syphilis Total Ab Non-reactive, Blood Type A POSITIVE, Antibody Screen NEGATIVE 04/09/23 06:10: WBC 15.4 H, RBC 4.00 L, Hgb 12.4, Hct 37.1, MCV 92.8, MCH 31.0, MCHC 33.4, RDW Std Deviation 48.5 H, RDW Coeff of Trish 14.3, Plt Count 212, MPV 9.8, Immature Gran % (Auto) 0.500, Neut % (Auto) 77.8 H, Lymph % (Auto) 14.7 L, [place] % (Auto) 6.4, Eos % (Auto) 0.3, Baso % (Auto) 0.3, Absolute Neuts (auto) 12.0 H, Absolute Lymphs (auto) 2.26, Nucleated RBC % 0 Physical Exam Narrative fundus firm Const alert and oriented x3 General Appearance: cooperative HEENT normocephalic Neck General: normal visual inspection GI soft to palpation and non-distended GI Narrative: Fundus firm Extremity normal to inspection and no calf tenderness Skin no rashes or lesions noted Neuro oriented x3 and CN's II-XII intact bilaterally Psych mental status grossly normal Assessment & Plan Assessment/Plan (1) Vaginal delivery: (2) Precipitous delivery: (3) First degree perineal laceration during delivery: PLAN: Plan PPD# 1 , Doing well Routine care pain mgmt ambulation plan on dc home tomorrow due to GBS status Capacity Legal Small Arms Repairer Reflex Medical hold order details:: IF a medical hold is selected below, a suggested order for a MEDICAL HOLD will reflex upon signing the document. Next of kin: [place] law dictates a PRIORITY LIST for identifying legal decision-maker/legal next of kin in the following order (LNOK): 1st: The patient?s legal guardian, if any 2nd: The patient's spouse (if status is questionable, consult Risk Management) 3rd: The patient?s adult child(moiz) (majority, if multiple children) 4th: The patient?s parents 5th: The patient?s adult siblings (majority, if multiple children siblings)
[2023-04-09 13:41] VITALS: BP 118/67; PULSE 78; RESP 16; TEMP 36.3
[2023-04-09] MEDS: Prenatal Vits Tablet 1 TABLET PO (15:11)
[2023-04-09 20:00] VITALS: BP 141/70; PULSE 86; RESP 15; TEMP 36.5; O2SAT 99
[2023-04-10 01:55] VITALS: BP 119/49; PULSE 72; RESP 16; TEMP 36.5; O2SAT 100
[2023-04-10] MEDS: Ibuprofen 600 MG Tablet PO ×2 (04:45→10:22)
--- NOTE | 2023-04-10 07:18 | PCM.PROGNOTE ---
Subjective Subjective patient seen at bedside, doing well. Patient reports good pain control. lochia mild. Objective Data Objective Data Vital Signs: Vital Signs Temp Pulse Resp BP Pulse Ox O2 Del Method 97.7 F L 72 16 119/49 L 100 Room Air 04/10/23 01:55 04/10/23 01:55 04/10/23 01:55 04/10/23 01:55 04/10/23 01:55 04/10/23 01:55 Oxygen Delivery Method Room Air Weight: 81.647 kg Body Mass Index (BMI) 31.8 Intake & Output: Intake and Output for Last 24 Hours 04/08/23 04/09/23 04/10/23 23:59 23:59 23:59 Output Total 1000 / 1000 Balance -1000 / -1000 Lab / Micro Data 04/09/23 06:10 Physical Exam Const alert and oriented x3 General Appearance: cooperative HEENT normocephalic Neck General: normal visual inspection GI soft to palpation and non-distended GI Narrative: Fundus firm Extremity normal to inspection and no calf tenderness Skin no rashes or lesions noted Neuro oriented x3 and CN's II-XII intact bilaterally Psych mental status grossly normal Assessment & Plan Assessment/Plan (1) Vaginal delivery: (2) First degree perineal laceration during delivery: (3) Precipitous delivery: PLAN: Plan PPD# 2 , Doing well Routine care pain mgmt ambulation dc home Capacity Legal Film Numberer Reflex Medical hold order details:: IF a medical hold is selected below, a suggested order for a MEDICAL HOLD will reflex upon signing the document. Next of kin: [place] law dictates a PRIORITY LIST for identifying legal decision-maker/legal next of kin in the following order (LNOK): 1st: The patient?s legal guardian, if any 2nd: The patient's spouse (if status is questionable, consult Risk Management) 3rd: The patient?s adult child(moiz) (majority, if multiple children) 4th: The patient?s parents 5th: The patient?s adult siblings (majority, if multiple children siblings)
--- NOTE | 2023-04-10 07:19 | DCINST_ITS ---
Discharge Instructions Diet Discharge Diet: No restrictions Activity May resume sexual activity in: 6-8 weeks Dressing / Incision Call your doctor if you observe: Fever of 101 or Higher, Inability to urinate, Using more than 1 pad per hour and Uncontrolled pain Follow Up Care Please Follow Up With: Yumi Ellsworth MD When: 1-2 weeks post and again at 6 weeks post . [phone] Test Results: Test results from this visit will be discussed in further detail at your follow- up appointment, if applicable. Discharge Plan Admission Admit Date/Time: 04/08/23 10:55 Attending Provider: Linda Wilson Primary Care Provider: Gee Rose Discharge Orders/Prescriptions Prescriptions: New acetaminophen 500 mg Tablet 1,000 mg PO Q6H PRN PRN (Reason: Pain 1-10 Or Fever) Qty: 0 0RF ibuprofen 600 mg Tablet 600 mg PO Q6H PRN PRN (Reason: Pain Score 1-3) Qty: 0 0RF Continued vit,[id number] 1 TABLET tablet 1 tab PO DAILY ferrous sulfate [Feosol] 325 mg (65 mg iron) tablet 325 mg PO DAILY Referrals / Follow Up: Gee Rose MD [Primary Care Provider] - Disposition Disposition (needs filled in before D/C Order can be placed): Home, Self Care
[2023-04-10 08:46] VITALS: BP 115/63; PULSE 89; RESP 16; TEMP 36.4; O2SAT 96
== END 2023-04-10 12:00 | disposition home or self-care (01) | DRG 560 ==
PROVIDERS: Admitting Provider Advanced Practice Midwife; PCP Family Medicine; Visit Provider Advanced Practice Midwife
DX: O42.92 Full-term premature rupture of membranes, unspecified as to length of time between rupture and onset of labor (principal); Z37.0 Single live birth; O62.3 Precipitate labor; O70.0 First degree perineal laceration during delivery; Z3A.39 39 weeks gestation of pregnancy
CPT/HCPCS: 59050; 85025; 86780; 86850; 86900; 86901; 99221; G0378